=== PATIENT | female | born 1990 | race Two or more races ===

== ENCOUNTER 2023-12-09 10:17 | Observation (INO) | payer MEDICAID ==
[2023-12-09] MEDS ORDERED: PREN-96 PO (11:58)
== END 2023-12-09 12:30 | disposition home or self-care (01) ==
LOC: UNDOADMOB 10:17 → LDRP 10:17
PROVIDERS: ADMIT Obstetrics & Gynecology; ATTEND Obstetrics & Gynecology
DX: O26.893 Other specified pregnancy related conditions, third trimester (principal); R10.30 Lower abdominal pain, unspecified; O99.333 Smoking (tobacco) complicating pregnancy, third trimester; F17.200 Nicotine dependence, unspecified, uncomplicated; Z3A.33 33 weeks gestation of pregnancy
CPT/HCPCS: 59025; 81002; 94760; G0378

== ENCOUNTER 2023-12-21 10:05 | Observation (INO) | payer MEDICAID, OTHER ==
[~2023-12-21] VITALS: Ht 162.6 cm; Wt 69.9 kg
[~2023-12-21 10:05] MED LIST: PREN-96 PO
[2023-12-21 11:52] LABS: Albumin 3.6 g/dL (3.2-4.8); Alkaline Phosphatase 148 U/L (46-116); Anion Gap 10 (5-15); Aspartate Aminotransferase 12 U/L (13-40); Calcium 9.6 mg/dL (8.5-10.1); Carbon Dioxide 22 mmol/L (20-30); Chloride 107 mmol/L (98-107); Glucose 163 mg/dL (74-106); Potassium 3.3 mmol/L (3.5-5.1); Sodium 139 mmol/L (136-145)
[2023-12-21 11:53] LABS: Bilirubin, Total 0.6 mg/dL (0.2-1.0); Total Protein 6.2 g/dL (5.7-8.2)
[2023-12-21 11:56] LABS: Alanine Aminotransferase 9 U/L (7-40); BUN/Creatinine Ratio 8.6 (10.0-20.0); Basophils # (auto) 0 10 ^3/uL (0-0.2); Basophils % (auto) 0.2 % (0.0-2.0); Blood Urea Nitrogen < 5 mg/dL (9-23); Eosinophils # (auto) 0.1 10 ^3/uL (0-0.8); Eosinophils % (auto) 1.1 % (0.0-7.0); Hematocrit 39.8 % (36.0-46.0); Hemoglobin 13.6 g/dL (12.2-16.2); Lymphocytes # (auto) 1.6 10 ^3/uL (0.4-5.4); Lymphocytes % (auto) 21.3 % (10.0-50.0); Mean Corpuscular Hemoglobin 30.1 pg (28.0-32.0); Mean Corpuscular Hgb Conc. 34.2 g/dL (32.0-36.0); Mean Corpuscular Volume 87.9 fL (80.0-100.0); Monocytes # (auto) 0.3 10 ^3/uL (0-1.3); Neutrophils # (auto) 5.4 10 ^3/uL (1.6-8.6); Neutrophils % (auto) 73.4 % (37.0-80.0); Nucleated Red Blood Cells % 0.1 %; Red Blood Cells 4.52 10^6/uL (4.0-5.20); White Blood Cell 7.3 10^3/uL (4.4-10.8)
[2023-12-21 12:01] LABS: INR 0.9 (0.9-1.15); Prothrombin Time 9.6 sec (9.3-11.8)
[2023-12-21 12:06] LABS: Amphetamine Screen, Urine Neg (NEGATIVE); Barbiturate Scree,Urine Neg (NEGATIVE); Benzodiazephine Screen, Urine Neg (NEGATIVE); Cannabinoid Screen, Urine Neg (NEGATIVE); Cocaine Screen, Urine Neg (NEGATIVE); Opiate Scree,Urine Neg (NEGATIVE); Phencyclidine Screen, Urine Neg (NEGATIVE)
[2023-12-21 12:20] LABS: Urine Bacteria FEW /hpf (None Seen); Urine Blood Negative /uL (Negative); Urine Clarity Clear (Clear); Urine Color Yellow (Yellow); Urine Mucus FEW (None Seen); Urine Protein, UAD TRACE (Negative); Urine Specific Gravity 1.022 (1.001-1.035); Urine Urobilinogen Normal (Negative); Urine WBC 1 /hpf (0 - 5)
[2023-12-21] MEDS: POTASSIUM CHL 20 Meq TABLET PO ONE (13:15)
[2023-12-22 06:06] LABS: Rubella Antibodies, IgG <0.90 index (Immune >0.99)
[2023-12-22 07:06] LABS: RPR Non Reactive (Non Reactive)
[2023-12-22 18:06] LABS: Chlamydia Trachomatis, NAA Negative (Negative); Neisseria gonorrhoeae, NAA Negative (Negative)
[2023-12-23 18:06] LABS: Treponema pallidum Ab (FTA-Ab) Non Reactive (Non Reactive)
[2023-12-23 21:06] LABS: QuantiFERON-TB Gold Plus Positive (Negative)
== END 2023-12-21 13:28 | disposition home or self-care (01) ==
LOC: LDRP 10:05 → UNDOADMOB 10:05 → LDRP 10:06
PROVIDERS: ADMIT Obstetrics & Gynecology; ATTEND Obstetrics & Gynecology
DX: O09.33 Supervision of pregnancy with insufficient antenatal care, third trimester (principal); O26.893 Other specified pregnancy related conditions, third trimester; R10.30 Lower abdominal pain, unspecified; O99.333 Smoking (tobacco) complicating pregnancy, third trimester; F17.210 Nicotine dependence, cigarettes, uncomplicated; Z3A.35 35 weeks gestation of pregnancy; Z79.899 Other long term (current) drug therapy
CPT/HCPCS: 36415; 59025; 76805; 80053; 80307; 81001; 81002; 83036; 85025; 85610; 85730; 86592; 86703; 86762; 86803; 86850; 86900; 86901; 87081; 87340; 87491; 87591; 94760; G0378

== ENCOUNTER 2023-12-28 09:04 | Observation (INO) | payer MEDICAID ==
[2023-12-28] MEDS ORDERED: CHOL20007 PO (15:04)
== END 2023-12-28 12:45 | disposition home or self-care (01) ==
LOC: LDRP 10:41 → UNDOADMOB 10:41 → LDRP 10:53
PROVIDERS: ADMIT Obstetrics & Gynecology; ATTEND Obstetrics & Gynecology
DX: O24.419 Gestational diabetes mellitus in pregnancy, unspecified control (principal); O99.333 Smoking (tobacco) complicating pregnancy, third trimester; F17.210 Nicotine dependence, cigarettes, uncomplicated; Z3A.36 36 weeks gestation of pregnancy
CPT/HCPCS: 59025; 76818; 81002; 94760; G0378

== ENCOUNTER 2024-01-11 11:28 | Observation (INO) | payer MEDICAID ==
[~2024-01-11 11:28] MED LIST changes: +CHOL20007 PO
== END 2024-01-11 13:55 | disposition home or self-care (01) ==
LOC: UNDOADMOB 11:28 → LDRP 11:28
PROVIDERS: ADMIT Obstetrics & Gynecology; ATTEND Obstetrics & Gynecology
DX: O47.1 False labor at or after 37 completed weeks of gestation (principal); O24.419 Gestational diabetes mellitus in pregnancy, unspecified control; O09.33 Supervision of pregnancy with insufficient antenatal care, third trimester; O99.333 Smoking (tobacco) complicating pregnancy, third trimester; F17.210 Nicotine dependence, cigarettes, uncomplicated; Z3A.38 38 weeks gestation of pregnancy
CPT/HCPCS: 71045; 76818; 82962; G0378

== ENCOUNTER 2024-01-11 20:27 | Observation (INO) | payer MEDICAID ==
[2024-01-11 21:20] LABS: Fern Testing Negative
== END 2024-01-11 22:25 | disposition home or self-care (01) ==
LOC: LDRP 20:27
PROVIDERS: ADMIT Obstetrics & Gynecology; ATTEND Obstetrics & Gynecology
DX: O42.913 Preterm premature rupture of membranes, unspecified as to length of time between rupture and onset of labor, third trimester (principal); O24.419 Gestational diabetes mellitus in pregnancy, unspecified control; O99.333 Smoking (tobacco) complicating pregnancy, third trimester; F17.210 Nicotine dependence, cigarettes, uncomplicated; Z3A.39 39 weeks gestation of pregnancy
CPT/HCPCS: 59025; 81002; 94760; G0378; Q0114

== ENCOUNTER 2024-01-13 11:23 | Inpatient (IN) | payer MEDICAID ==
[~2024-01-13] VITALS: Ht 162.6 cm; Wt 68.0 kg
[2024-01-13] VITALS (17 sets, daily range): BP systolic 98–124; BP diastolic 55–79; PULSE 77–110; RESP 16–20; TEMP 97.6–98.8; O2SAT 94–100
[2024-01-13] MEDS: LACTATED RINGER'S 1,000 ML IV ONE (12:03)
[2024-01-13 12:23] LABS: Basophils # (auto) 0 10 ^3/uL (0-0.2); Basophils % (auto) 0.2 % (0.0-2.0); Eosinophils # (auto) 0 10 ^3/uL (0-0.8); Eosinophils % (auto) 0.1 % (0.0-7.0); Hematocrit 39.5 % (36.0-46.0); Hemoglobin 13.6 g/dL (12.2-16.2); Lymphocytes % (auto) 6.3 % (10.0-50.0); Mean Corpuscular Hemoglobin 30.5 pg (28.0-32.0); Mean Corpuscular Hgb Conc. 34.3 g/dL (32.0-36.0); Mean Corpuscular Volume 88.7 fL (80.0-100.0); Monocytes # (auto) 0.7 10 ^3/uL (0-1.3); Monocytes % (auto) 4.5 % (0.0-12.0); Neutrophils # (auto) 13.7 10 ^3/uL (1.6-8.6); Neutrophils % (auto) 88.9 % (37.0-80.0); Nucleated Red Blood Cells % 0.1 %; Red Blood Cells 4.45 10^6/uL (4.0-5.20); White Blood Cell 15.4 10^3/uL (4.4-10.8)
[2024-01-13] MEDS ORDERED: ceFAZolin 2 GM/D5W50ml 50 ML IV ONE (12:30)
[2024-01-13 12:43] LABS: Albumin 3.7 g/dL (3.2-4.8); Alkaline Phosphatase 208 U/L (46-116); Anion Gap 9 (5-15); Aspartate Aminotransferase 13 U/L (13-40); Bilirubin, Total 1.2 mg/dL (0.2-1.0); Calcium 9.3 mg/dL (8.7-10.4); Carbon Dioxide 19 mmol/L (20-30); Chloride 106 mmol/L (98-107); Glucose 94 mg/dL (74-106); Potassium 3.5 mmol/L (3.5-5.1); Sodium 134 mmol/L (136-145); Uric Acid 4.1 mg/dL (3.1-7.8)
[2024-01-13 12:44] LABS: Total Protein 6.3 g/dL (5.7-8.2)
[2024-01-13] MEDS: ACETAMINOPHEN 500 MG TAB PO ONE ×2 (12:45→15:28)
[2024-01-13 12:46] LABS: Alanine Aminotransferase < 9 U/L (7-40); BUN/Creatinine Ratio 7.7 (10.0-20.0); Blood Urea Nitrogen < 5 mg/dL (9-23)
[2024-01-13 12:59] LABS: INR 0.9 (0.9-1.15); Partial Thromboplastin Time 26.1 SEC (24.5-34.5); Prothrombin Time 9.6 sec (9.3-11.8)
[2024-01-13 13:05] LABS: Urine Bacteria None Seen /hpf (None Seen)
[2024-01-13] MEDS: LACTATED RINGER'S 1,000 ML IV SCH (13:05)
[2024-01-13] MEDS ORDERED: MORPHINE SULF PF 5 MG/10 ML VIAL ONE (13:19)
[2024-01-13] MEDS ORDERED: fentaNYL CITRATE 100 MCG/2 ML VL ONE (13:19)
[2024-01-13] MEDS ORDERED: ONDANSETRON HCL 4 MG/2 ML VIAL ONE (13:20)
[2024-01-13] MEDS ORDERED: DexAMETHasone SOD PHOS 10MG/1ML VIAL INJ ONE (13:20)
[2024-01-13] MEDS: AMPICILLIN SOD 1 GM VL ONE (13:21)
[2024-01-13 13:26] LABS: Amphetamine Screen, Urine Neg (NEGATIVE); Benzodiazephine Screen, Urine Neg (NEGATIVE)
[2024-01-13 13:27] LABS: Barbiturate Scree,Urine Neg (NEGATIVE); Cannabinoid Screen, Urine Neg (NEGATIVE); Cocaine Screen, Urine Neg (NEGATIVE); Opiate Scree,Urine Neg (NEGATIVE); Phencyclidine Screen, Urine Neg (NEGATIVE)
[2024-01-13] MEDS: AMPICILLIN SOD 2GM INJ 2 GM in SODIUM CHL 0.9% 100 ML IV ONE (13:27)
[2024-01-13] MEDS ORDERED: oxyTOCIN 10 UNIT/ML 10ML VIAL ONE (13:36)
[2024-01-13] MEDS ORDERED: DOCU-94 PO (13:44)
[2024-01-13] MEDS ORDERED: HYDR-4902 PO (13:44)
[2024-01-13] MEDS ORDERED: IBUP-1456 PO (13:44)
[2024-01-13] MEDS ORDERED: PHENYLEPHRINE HCL 10 MG/ML VL ONE (13:55)
[2024-01-13] MEDS ORDERED: SODIUM CHLORIDE LOCK 10 ML ONE (13:55)
[2024-01-13] MEDS ORDERED: NALOXONE HCL 0.4 MG/ML VIAL IV PRN (14:45)
[2024-01-13] MEDS ORDERED: HYDROmorphone HCL 2 MG/ML VL/or syr IV PRN (14:45)
[2024-01-13] MEDS ORDERED: ONDANSETRON HCL 4 MG/2 ML VIAL IV PRN (14:45)
[2024-01-13 14:47] LABS: Urine Blood Negative /uL (Negative); Urine Clarity Clear (Clear); Urine Color Yellow (Yellow); Urine Mucus FEW (None Seen); Urine Protein, UAD Negative (Negative); Urine Specific Gravity 1.016 (1.001-1.035); Urine Urobilinogen Normal (Negative); Urine WBC 1 /hpf (0 - 5)
[2024-01-13] MEDS: GENTAMICIN SULFATE 100 MG in D5W 5% 100 ML IV ONE (15:26)
[2024-01-13] MEDS: LACT. RINGERS/OXYTOCIN 20UNITS 1,000 ML IV ONE (15:28)
[2024-01-13] MEDS: NALBUPHINE HCL 10 MG/1ml INJECTION IV ONE (15:29)
[2024-01-13] MEDS: GUM (CHEWING) 1 GUM CHEW CHEW ONE (18:00)
[2024-01-13] MEDS: ONDANSETRON HCL 4 MG/2 ML VIAL IV PRN (20:40)
[2024-01-13] MEDS: AMPICILLIN INJ 1 GM in SODIUM CHL 0.9% 100 ML IV SCH (20:51)
[2024-01-13 23:04] LABS: Hematocrit 39.5 % (36.0-46.0); Hemoglobin 13.3 g/dL (12.2-16.2); Mean Corpuscular Hemoglobin 29.7 pg (28.0-32.0); Mean Corpuscular Hgb Conc. 33.6 g/dL (32.0-36.0); Mean Corpuscular Volume 88.5 fL (80.0-100.0); Red Blood Cells 4.46 10^6/uL (4.0-5.20); Red Cell Distribution Width 13.9 % (11.8-14.3); White Blood Cell 21.9 10^3/uL (4.4-10.8)
[2024-01-13 23:06] LABS: Basophils % (manual) 0 (0.0-2.0); Blast Cells 0; Eosinophils % (manual) 0 (0-7); Metamyelocytes % 0; Myelocytes % 0; Promyelocytes % 0; Reactive Lymphocytes 0
[2024-01-13 23:17] LABS: Band Neutrophils % (manual) 6; Lymphocytes % (manual) 2 (10.0-50.0); Monocytes % (manual) 2 (0-12)
[2024-01-13 23:18] LABS: Platelet Estimate Adequate
[2024-01-14] VITALS (20 sets, daily range): BP systolic 90–105; BP diastolic 48–67; PULSE 73–90; RESP 16–20; TEMP 97.5–98; O2SAT 95–99
[2024-01-14 06:25] LABS: Basophils # (auto) 0 10 ^3/uL (0-0.2); Basophils % (auto) 0.1 % (0.0-2.0); Eosinophils # (auto) 0 10 ^3/uL (0-0.8); Hematocrit 34.1 % (36.0-46.0); Hemoglobin 11.9 g/dL (12.2-16.2); Lymphocytes # (auto) 1.6 10 ^3/uL (0.4-5.4); Lymphocytes % (auto) 8.2 % (10.0-50.0); Mean Corpuscular Hemoglobin 31.1 pg (28.0-32.0); Mean Corpuscular Hgb Conc. 34.9 g/dL (32.0-36.0); Mean Corpuscular Volume 89.1 fL (80.0-100.0); Monocytes # (auto) 0.8 10 ^3/uL (0-1.3); Monocytes % (auto) 4.2 % (0.0-12.0); Neutrophils # (auto) 17.2 10 ^3/uL (1.6-8.6); Neutrophils % (auto) 87.5 % (37.0-80.0); Red Blood Cells 3.82 10^6/uL (4.0-5.20); Red Cell Distribution Width 14.2 % (11.8-14.3); White Blood Cell 19.7 10^3/uL (4.4-10.8)
[2024-01-14] MEDS: KETOROLAC TROMETH 30 MG/ML 1ML VIAL IV PRN (07:34)
[2024-01-14] MEDS ORDERED: BISACODYL 10 MG RECT SUPP PR PRN (07:45)
[2024-01-14 08:06] LABS: RPR Non Reactive (Non Reactive)
[2024-01-14] MEDS: diphenhdrAMINE HCL 50 MG/1 ML VL IV PRN (08:54)
[2024-01-14] MEDS: DOCUSATE SOD 100 MG CAP PO SCH (11:58)
[2024-01-14] MEDS: DOCUSATE CALCIUM 240 MG CAP PO SCH (11:58)
[2024-01-14] MEDS: SIMETHICONE 80 MG CHEWABLE TABLET PO SCH (12:00)
[2024-01-14] MEDS: HYDROcodone-ACET 5/325MG TAB PO PRN (14:48)
[2024-01-15 03:00] VITALS: BP 100/62; PULSE 79; RESP 16; TEMP 97.8; O2SAT 96
[2024-01-15 07:00] VITALS: BP 99/81; PULSE 83; RESP 18; TEMP 98; O2SAT 98
[2024-01-15 08:01] LABS: Basophils # (auto) 0.1 10 ^3/uL (0-0.2); Basophils % (auto) 0.5 % (0.0-2.0); Eosinophils # (auto) 0.1 10 ^3/uL (0-0.8); Eosinophils % (auto) 1.3 % (0.0-7.0); Hemoglobin 11.9 g/dL (12.2-16.2); Lymphocytes # (auto) 2.5 10 ^3/uL (0.4-5.4); Mean Corpuscular Hemoglobin 30.3 pg (28.0-32.0); Mean Corpuscular Hgb Conc. 33.9 g/dL (32.0-36.0); Mean Corpuscular Volume 89.4 fL (80.0-100.0); Monocytes # (auto) 0.5 10 ^3/uL (0-1.3); Monocytes % (auto) 4.8 % (0.0-12.0); Neutrophils # (auto) 8.3 10 ^3/uL (1.6-8.6); Neutrophils % (auto) 71.4 % (37.0-80.0); Nucleated Red Blood Cells % 0.1 %; Red Blood Cells 3.91 10^6/uL (4.0-5.20); Red Cell Distribution Width 14.3 % (11.8-14.3); White Blood Cell 11.6 10^3/uL (4.4-10.8)
[2024-01-15] MEDS: HYDROcodone-ACET 5/325MG TAB PO PRN (10:35)
[2024-01-15 11:00] VITALS: BP 99/66; PULSE 79; RESP 18; TEMP 97.8; O2SAT 98
[2024-01-15 15:00] VITALS: BP 127/76; PULSE 74; RESP 18; TEMP 97.8; O2SAT 99
[2024-01-15 19:00] VITALS: BP 101/65; PULSE 77; RESP 17; TEMP 97.9; O2SAT 98
[2024-01-15] MEDS: IBUPROFEN 800 MG TAB PO PRN (22:43)
[2024-01-15 22:50] VITALS: BP 100/62; PULSE 77; RESP 18; TEMP 98; O2SAT 97
[2024-01-16 03:14] VITALS: BP 96/62; PULSE 69; RESP 16; TEMP 97.8; O2SAT 99
[2024-01-16 07:10] VITALS: BP 107/63; PULSE 76; RESP 15; TEMP 97.9; O2SAT 98
[2024-01-16] MEDS: MEASLES, MUMPS & RUBELLA VAC(MMRII) 0.5ML SC ONE (09:38)
[2024-01-17 19:06] LABS: Treponema pallidum Ab (FTA-Ab) Non Reactive (Non Reactive)
== END 2024-01-16 09:56 | disposition home or self-care (01) | DRG 540 ==
LOC: LDRP 11:23 → OBSVTOIN 13:00 → LDRP 15:02
PROVIDERS: ADMIT Obstetrics & Gynecology; ATTEND Obstetrics & Gynecology
PROC: 10D00Z1 Extraction of Products of Conception, Low, Open Approach (ICD-10-PCS; principal; 2024-01-13 13:43)
DX: O76 Abnormality in fetal heart rate and rhythm complicating labor and delivery (principal); O41.1230 Chorioamnionitis, third trimester, not applicable or unspecified; R71.0 Precipitous drop in hematocrit; O69.81X0 Labor and delivery complicated by cord around neck, without compression, not applicable or unspecified; Z37.0 Single live birth; Z3A.38 38 weeks gestation of pregnancy
CPT/HCPCS: 36415; 59025; 76818; 80053; 80307; 81001; 83605; 84550; 85007; 85025; 85027; 85610; 85730; 86592; 86803; 86850; 86900; 86901; 87040; 87086; 94760; 94762; 96360; 96361; 96374; 96375; G0378; J1100; J1885; J2405; J2590; J7060